=== PATIENT | male | born 1955 ===

== ENCOUNTER 2019-02-22 15:20 | Emergency (ER) | payer MEDICARE, OTHER ==
[~2019-02-22] VITALS: Ht 180.3 cm; Wt 68.0 kg
[2019-02-22 16:10] LABS: BASOPHILS PERCENT AUTO 1 % (0-2); EOSINOPHILS ABSOLUTE AUTO 0.22 K/mm3 (0.00-0.68); EOSINOPHILS PERCENT AUTO 2 % (0-6); Hematocrit 35.5 % (37.0-53.0); Hemoglobin 10.9 g/dL (13.5-17.5); IMMATURE GRAN ABSOLUTE AUTO 0.04 K/mm3 (0.00-0.10); IMMATURE GRAN PERCENT AUTO 0 % (0-1); LYMPHOCYTES ABSOLUTE AUTO 1.94 K/mm3 (0.84-5.20); LYMPHOCYTES PERCENT AUTO 16 % (21-46); MONOCYTES ABSOLUTE AUTO 1.15 K/mm3 (0.16-1.47); MONOCYTES PERCENT AUTO 10 % (4-13); Mean Corpuscular HGB 20.4 pg (26.0-34.0); Mean Corpuscular HGB Conc 30.7 g/dL (31.5-36.5); Mean Corpuscular Volume 66 fL (80-100); Mean Platelet Volume 9.4 fL (9.1-12.4); NEUTROPHILS ABSOLUTE AUTO 8.46 K/mm3 (1.96-9.15); NEUTROPHILS PERCENT AUTO 71 % (41-73); NRBC ABSOLUTE 0.02 K/mm3 (0.00-0.02); NRBC Auto 0.2 /100 WBC (0.0-0.2); Platelet Count 364 K/mm3 (150-400); RDW Coefficient Variation 16.2 % (11.7-14.2); RDW Standard Deviation 36.5 fL (35.1-46.3); Red Blood Cell Count 5.35 M/mm3 (4.30-5.90); White Blood Cell Count 11.91 K/mm3 (4.00-11.30)
[2019-02-22 16:29] LABS: Alanine Aminotransfer (ALT/SGP 25 U/L (12-78); Albumin, Blood 3.3 g/dL (3.4-5.0); Albumin/Globulin Ratio 0.8 (0.8-1.8); Alk Phos 98 U/L (50-136); Anion Gap 5 mmol/L (6-16); Aspartate Aminotrans (AST/SGOT 28 U/L (12-37); Bilirubin, Total 0.4 mg/dL (0.1-1.0); Blood Urea Nitrogen 28 mg/dL (8-24); Bun/Creatinine Ratio 24.3 (12.0-20.0); CO2, Blood 28 mmol/L (21-32); Chloride, Blood 105 mmol/L (98-108); Creatinine, Blood 1.15 mg/dL (0.60-1.20); Globulin, Blood 4.1 g/dL (2.2-4.0); Glomerular Filtration Rate >60 (60-); Glucose, Blood 57 mg/dL (70-99); Potassium, Blood 3.9 mmol/L (3.5-5.5); Sodium, Blood 138 mmol/L (136-145); Total Protein, Blood 7.4 g/dL (6.4-8.2)
[2019-02-22 17:13] LABS: Source, Urine Clean Catch
[2019-02-22 17:16] LABS: Bilirubin, Urine Neg (Neg); Blood, Urine 1+ (Neg); Glucose Qualitative, Urine Neg (Neg); Ketones, Urine Neg (Neg); Leukocyte Esterase, Urine Neg (Neg); Nitrite, Urine Neg (Neg); Protein, Urine 2+ (Neg); Specific Gravity, Urine 1.015 (1.003-1.022); Urobilinogen, Urine NORM (Normal)
[2019-02-22 17:22] LABS: Appearance, Urine Clear (Clear); Color, Urine Yellow (P-Yellow)
[2019-02-22 17:24] LABS: Bacteria Few /hpf; Squamous Epithelial Cells Few /hpf (Few)
== END 2019-02-22 19:05 | disposition home or self-care (01) ==
LOC: ER 15:20
PROVIDERS: Physician Assistant
DX: E86.0 Dehydration (principal); E16.2 Hypoglycemia, unspecified; D64.9 Anemia, unspecified; D72.829 Elevated white blood cell count, unspecified; F17.290 Nicotine dependence, other tobacco product, uncomplicated
CPT/HCPCS: 80053; 81001; 82947; 85025; 93005; 93010; 96360; 96361; 99285-25; J7120

== ENCOUNTER 2019-03-27 22:11 | Emergency (ER) | payer MEDICARE, OTHER ==
[~2019-03-27] VITALS: Ht 172.7 cm; Wt 69.4 kg
[2019-03-27 22:42] LABS: BASOPHILS ABSOLUTE AUTO 0.07 K/mm3 (0.00-0.23); BASOPHILS PERCENT AUTO 1 % (0-2); EOSINOPHILS ABSOLUTE AUTO 0.44 K/mm3 (0.00-0.68); EOSINOPHILS PERCENT AUTO 5 % (0-6); Hematocrit 32.6 % (37.0-53.0); Hemoglobin 10.1 g/dL (13.5-17.5); IMMATURE GRAN ABSOLUTE AUTO 0.03 K/mm3 (0.00-0.10); IMMATURE GRAN PERCENT AUTO 0 % (0-1); LYMPHOCYTES ABSOLUTE AUTO 2.63 K/mm3 (0.84-5.20); LYMPHOCYTES PERCENT AUTO 32 % (21-46); MONOCYTES ABSOLUTE AUTO 0.66 K/mm3 (0.16-1.47); MONOCYTES PERCENT AUTO 8 % (4-13); Mean Corpuscular HGB 20.9 pg (26.0-34.0); Mean Corpuscular Volume 68 fL (80-100); Mean Platelet Volume 9.6 fL (9.1-12.4); NEUTROPHILS PERCENT AUTO 53 % (41-73); NRBC ABSOLUTE 0.04 K/mm3 (0.00-0.02); NRBC Auto 0.5 /100 WBC (0.0-0.2); Platelet Count 301 K/mm3 (150-400); RDW Coefficient Variation 15.4 % (11.7-14.2); RDW Standard Deviation 36.3 fL (35.1-46.3); Red Blood Cell Count 4.83 M/mm3 (4.30-5.90); White Blood Cell Count 8.23 K/mm3 (4.00-11.30)
[2019-03-27 22:59] LABS: Alanine Aminotransfer (ALT/SGP 28 U/L (12-78); Albumin, Blood 3.4 g/dL (3.4-5.0); Albumin/Globulin Ratio 0.8 (0.8-1.8); Alk Phos 106 U/L (50-136); Anion Gap 3 mmol/L (6-16); Aspartate Aminotrans (AST/SGOT 27 U/L (12-37); Bilirubin, Total 0.3 mg/dL (0.1-1.0); Blood Urea Nitrogen 41 mg/dL (8-24); Bun/Creatinine Ratio 49.6 (12.0-20.0); CO2, Blood 30 mmol/L (21-32); Chloride, Blood 111 mmol/L (98-108); Creatinine, Blood 0.83 mg/dL (0.60-1.20); Globulin, Blood 4.3 g/dL (2.2-4.0); Glomerular Filtration Rate >60 (60-); Glucose, Blood 58 mg/dL (70-99); Potassium, Blood 3.9 mmol/L (3.5-5.5); Sodium, Blood 144 mmol/L (136-145); Total Protein, Blood 7.7 g/dL (6.4-8.2)
[2019-03-28] MEDS ORDERED: ONDA4ODT MM (01:13)
[2019-03-28] MEDS ORDERED: PANT20 PO (01:13)
== END 2019-03-28 01:00 | disposition home or self-care (01) ==
LOC: ER 22:11
PROVIDERS: Emergency Medicine
DX: R10.13 Epigastric pain (principal); R11.2 Nausea with vomiting, unspecified; F17.200 Nicotine dependence, unspecified, uncomplicated
CPT/HCPCS: 80053; 83690; 85025; 99284; A9270-GY

== ENCOUNTER 2019-03-31 18:09 | Emergency (ER) | payer MEDICARE, OTHER ==
[~2019-03-31] VITALS: Ht 172.7 cm; Wt 69.4 kg
[~2019-03-31 18:09] MED LIST: ONDA4ODT MM; PANT20 PO
[2019-03-31] MEDS ORDERED: ACETAMINOPHEN500 MG PO (20:19)
== END 2019-03-31 20:35 | disposition home or self-care (01) ==
LOC: ER 18:09
DX: T14.8XXA Other injury of unspecified body region, initial encounter (principal); R51 Headache; M25.561 Pain in right knee; M25.562 Pain in left knee; M79.641 Pain in right hand; M79.642 Pain in left hand; W01.198A Fall on same level from slipping, tripping and stumbling with subsequent striking against other object, initial encounter; F17.200 Nicotine dependence, unspecified, uncomplicated
CPT/HCPCS: 99283

== ENCOUNTER 2019-04-01 03:33 | Emergency (ER) | payer MEDICARE, OTHER ==
[~2019-04-01] VITALS: Ht 172.7 cm; Wt 69.4 kg
[~2019-04-01 03:33] MED LIST changes: +ACETAMINOPHEN500 MG PO
== END 2019-04-01 05:18 | disposition home or self-care (01) ==
LOC: ER 03:33
DX: S69.92XA Unspecified injury of left wrist, hand and finger(s), initial encounter (principal); S69.91XA Unspecified injury of right wrist, hand and finger(s), initial encounter; W18.30XA Fall on same level, unspecified, initial encounter
CPT/HCPCS: 73100; 99283-25

== ENCOUNTER 2019-04-07 18:36 | Emergency (ER) | payer MEDICARE, OTHER ==
[~2019-04-07] VITALS: Ht 172.7 cm; Wt 69.4 kg
[2019-04-07 19:00] LABS: BASOPHILS ABSOLUTE AUTO 0.09 K/mm3 (0.00-0.23); BASOPHILS PERCENT AUTO 1 % (0-2); EOSINOPHILS ABSOLUTE AUTO 0.65 K/mm3 (0.00-0.68); EOSINOPHILS PERCENT AUTO 8 % (0-6); Hematocrit 30.3 % (37.0-53.0); Hemoglobin 9.4 g/dL (13.5-17.5); IMMATURE GRAN ABSOLUTE AUTO 0.02 K/mm3 (0.00-0.10); IMMATURE GRAN PERCENT AUTO 0 % (0-1); LYMPHOCYTES ABSOLUTE AUTO 3.03 K/mm3 (0.84-5.20); LYMPHOCYTES PERCENT AUTO 36 % (21-46); MONOCYTES ABSOLUTE AUTO 0.51 K/mm3 (0.16-1.47); MONOCYTES PERCENT AUTO 6 % (4-13); Mean Corpuscular HGB 21.1 pg (26.0-34.0); Mean Corpuscular Volume 68 fL (80-100); Mean Platelet Volume 9.3 fL (9.1-12.4); NEUTROPHILS ABSOLUTE AUTO 4.21 K/mm3 (1.96-9.15); NEUTROPHILS PERCENT AUTO 50 % (41-73); Platelet Count 338 K/mm3 (150-400); RDW Coefficient Variation 16.5 % (11.7-14.2); RDW Standard Deviation 38.5 fL (35.1-46.3); Red Blood Cell Count 4.45 M/mm3 (4.30-5.90); White Blood Cell Count 8.51 K/mm3 (4.00-11.30)
[2019-04-07 19:41] LABS: Anion Gap 8 mmol/L (6-16); Blood Urea Nitrogen 17 mg/dL (8-24); CO2, Blood 27 mmol/L (21-32); Calcium, Blood 8.9 mg/dL (8.5-10.1); Chloride, Blood 108 mmol/L (98-108); Glomerular Filtration Rate >60 (60-); Glucose, Blood 99 mg/dL (70-99); Potassium, Blood 3.7 mmol/L (3.5-5.5); Sodium, Blood 143 mmol/L (136-145)
== END 2019-04-07 21:18 | disposition home or self-care (01) ==
LOC: ER 18:36
PROVIDERS: Emergency Medicine
DX: R53.83 Other fatigue (principal); Z85.841 Personal history of malignant neoplasm of brain; F17.200 Nicotine dependence, unspecified, uncomplicated; Z59.0 Homelessness
CPT/HCPCS: 80048; 84443; 85025; 93005; 93010; 99284-25

== ENCOUNTER 2019-04-11 08:12 | Observation (INO) | payer MEDICARE, OTHER ==
[~2019-04-11] VITALS: Ht 172.7 cm; Wt 72.6 kg
[2019-04-11 09:21] LABS: BASOPHILS ABSOLUTE AUTO 0.06 K/mm3 (0.00-0.23); BASOPHILS PERCENT AUTO 0 % (0-2); EOSINOPHILS ABSOLUTE AUTO 0.31 K/mm3 (0.00-0.68); EOSINOPHILS PERCENT AUTO 2 % (0-6); Hematocrit 37.8 % (37.0-53.0); Hemoglobin 11.3 g/dL (13.5-17.5); IMMATURE GRAN ABSOLUTE AUTO 0.05 K/mm3 (0.00-0.10); IMMATURE GRAN PERCENT AUTO 0 % (0-1); LYMPHOCYTES ABSOLUTE AUTO 4.04 K/mm3 (0.84-5.20); LYMPHOCYTES PERCENT AUTO 29 % (21-46); MONOCYTES ABSOLUTE AUTO 0.69 K/mm3 (0.16-1.47); MONOCYTES PERCENT AUTO 5 % (4-13); Mean Corpuscular HGB 20.5 pg (26.0-34.0); Mean Corpuscular HGB Conc 29.9 g/dL (31.5-36.5); Mean Corpuscular Volume 69 fL (80-100); Mean Platelet Volume 9.2 fL (9.1-12.4); NEUTROPHILS ABSOLUTE AUTO 8.66 K/mm3 (1.96-9.15); NEUTROPHILS PERCENT AUTO 63 % (41-73); Platelet Count 442 K/mm3 (150-400); RDW Coefficient Variation 17.7 % (11.7-14.2); RDW Standard Deviation 38.8 fL (35.1-46.3); Red Blood Cell Count 5.52 M/mm3 (4.30-5.90); White Blood Cell Count 13.81 K/mm3 (4.00-11.30)
[2019-04-11 09:36] LABS: Alanine Aminotransfer (ALT/SGP 34 U/L (12-78); Albumin, Blood 4.1 g/dL (3.4-5.0); Albumin/Globulin Ratio 0.9 (0.8-1.8); Alk Phos 114 U/L (50-136); Anion Gap 14 mmol/L (6-16); Aspartate Aminotrans (AST/SGOT 49 U/L (12-37); Bilirubin, Total 0.4 mg/dL (0.1-1.0); Blood Urea Nitrogen 33 mg/dL (8-24); Bun/Creatinine Ratio 28.9 (12.0-20.0); CO2, Blood 23 mmol/L (21-32); Calcium, Blood 9.5 mg/dL (8.5-10.1); Chloride, Blood 106 mmol/L (98-108); Creatinine, Blood 1.14 mg/dL (0.60-1.20); Globulin, Blood 4.7 g/dL (2.2-4.0); Glomerular Filtration Rate >60 (60-); Glucose, Blood 81 mg/dL (70-99); Sodium, Blood 143 mmol/L (136-145); Total Protein, Blood 8.8 g/dL (6.4-8.2)
[2019-04-11 13:13] LABS: Phosphorus, Blood 3.1 mg/dL (2.5-4.9)
[2019-04-11 15:59] LABS: Source, Urine Clean Catch
[2019-04-11 16:02] LABS: Bilirubin, Urine Neg (Neg); Blood, Urine Neg (Neg); Glucose Qualitative, Urine Neg (Neg); Ketones, Urine 3+ (Neg); Leukocyte Esterase, Urine Neg (Neg); Nitrite, Urine Neg (Neg); Protein, Urine 1+ (Neg); Specific Gravity, Urine 1.015 (1.003-1.022); Urobilinogen, Urine NORM (Normal)
[2019-04-11 16:04] LABS: Appearance, Urine Clear (Clear); Color, Urine Yellow (P-Yellow)
[2019-04-11 16:35] LABS: U Amphetamine Screen DETECTED; U Barbituate Screen Not Detected; U Benzodiazapine Screen DETECTED; U Buprenorphine Screen Not Detected; U Cannabinoids Screen DETECTED; U Cocaine Screen Not Detected; U Methadone Screen Not Detected; U Methamphetamine Screen DETECTED; U Opiates Screen Not Detected; U Oxycodone Screen Not Detected; U Phencyclidine Screen Not Detected; U Propoxyphene Screen Not Detected
--- NOTE | 2019-04-11 17:43 | NUR ---
SHIFT SUMMARY. 1354 PT ADMITTED TO MEDICAL FLOOR VIA ASAEL DUNN TRANSFERED TO BED WITH 4 STAFF, PT TOLERATED WELL. BED BATH GIVEN AFTER TRANSFER PT WAS COVERED IN DIRT. PT EASILY AWAKENS WITH VERBAL STIMULATION ALTHOUGH VERY LETHARGIC, ORIENTATED TO SELF AND PLACE, POOR HISTORIAN. PT WITH INTERMITTENT TREMORS WHILE AWAKE. PT IS PLEASANT, COOPERATIVE, AND APPRECIATIVE. PT REPORTS HE IS HOMELESS. LUNGS CLEAR, TELE PLACED AND NSR AT 86 BPM. STAGE II PRESSURE ULCER OBSERVED TO R HIP, WOUND CARE AND DOCUMENTATION COMPLETED. IV FLUIDS STARTED. URINE SENT TO LAB. CIWA 5, STABLE WITHDRAWL, PT IS UNAWARE OF TIME OF LAST DRINK.
--- NOTE | 2019-04-11 18:06 | NUR ---
CBG 67, PT MORE ALERT THIS EVENING DR. LOPEZ NOTIFIED AND RECIEVED ORDERS FOR REGULAR DIET.
--- NOTE | 2019-04-11 23:00 | NUR ---
PT SOMNOLENT DURING ASSESSMENT AND IS COOPERATIVE. PT AWARE HE IS AT THE HOSPITAL. ABLE TO STATE DAY OF THE WEEK AND MONTH CORRECTLY. PT HAS MILD TO MODERATE TREMORS AT REST AT THE FEET. DENIES PAIN, NAUSEA AND DIZZINIESS. ORAL CARE OFFERED BUT PT DID NOT PARTICIPATE. WILL CONTINUE TO MONITOR.
--- NOTE | 2019-04-12 00:23 | NUR ---
PT'S BLOOD SUGAR 64 AROUND MIDNIGHT. ORANGE WAS OFFERED MIXED WITH A COUPLE PACKS OF SUGARS. AMANDA CRACKER WITH HONEY PACK WAS ALSO OFFERED. PT DRANK 240 ML OF OJ. MORE ORANGE JUICE LEFT AT BEDSIDE. WILL CONTINUE TO MONITOR.
--- NOTE | 2019-04-12 01:53 | NUR ---
BLOOD SUGAR RECHECKED AND IMPROVED TO 132. WILL NOTIFY CHARGE NURSE.
--- NOTE | 2019-04-12 02:34 | NUR ---
PT GOT UP TO GO TO THE BATHROOM. MOVEMENTS WERE IMPULSIVE. PT WAS UP OUT OF THE BED BEFORE STAFF CAME IN REGARDLESS OF BED ALARM. PT PULLED OFF TELE AND ATTEMPTED TO PULL OUT IV. NURSE UNHOOKED PT FROM IV LINE BEFORE HE COULD PULL IT OUT. PT RE-INSTRUCTED TO USE CALL SMILEY. PT ALSO INCOMPREHENSIBLE AT TIMES.
--- NOTE | 2019-04-12 02:52 | NUR ---
TEMP CLIMBED UP TO 100.5. ROOM ADJUSTED TO A LOWER TEMPERATURE. PT HAD 2 BLANKETS AND A TOP SHEET ON PREVIOUSLY. NURSE LEFT ONLY TOP SHEET ON IN ATTEMPT TO LOWER TEMPERATURE. PT DENIED CHILLS, AND PAIN. PT STATES HE FEELS "JUST RIGHT" AND "COMFORTABLE". WILL CONINTUE TO MONITOR.
[2019-04-12 04:55] LABS: BASOPHILS ABSOLUTE AUTO 0.07 K/mm3 (0.00-0.23); BASOPHILS PERCENT AUTO 1 % (0-2); EOSINOPHILS ABSOLUTE AUTO 0.38 K/mm3 (0.00-0.68); EOSINOPHILS PERCENT AUTO 4 % (0-6); Hematocrit 30.7 % (37.0-53.0); Hemoglobin 9.6 g/dL (13.5-17.5); IMMATURE GRAN ABSOLUTE AUTO 0.03 K/mm3 (0.00-0.10); IMMATURE GRAN PERCENT AUTO 0 % (0-1); LYMPHOCYTES ABSOLUTE AUTO 2.71 K/mm3 (0.84-5.20); LYMPHOCYTES PERCENT AUTO 26 % (21-46); MONOCYTES ABSOLUTE AUTO 0.78 K/mm3 (0.16-1.47); MONOCYTES PERCENT AUTO 8 % (4-13); Mean Corpuscular HGB 20.9 pg (26.0-34.0); Mean Corpuscular HGB Conc 31.3 g/dL (31.5-36.5); Mean Corpuscular Volume 67 fL (80-100); Mean Platelet Volume 9.2 fL (9.1-12.4); NEUTROPHILS ABSOLUTE AUTO 6.28 K/mm3 (1.96-9.15); NEUTROPHILS PERCENT AUTO 61 % (41-73); Platelet Count 368 K/mm3 (150-400); RDW Coefficient Variation 16.6 % (11.7-14.2); RDW Standard Deviation 37.2 fL (35.1-46.3); White Blood Cell Count 10.25 K/mm3 (4.00-11.30)
--- NOTE | 2019-04-12 05:12 | NUR ---
TEMP RE-ASSESSED: 100.3. HOSPITALIST NOTIFIED. TYLENOL 325MG X2 PO ORDERED AND GIVEN PER DR. BOURNE. WILL CONTINUE TO MONITOR.
[2019-04-12 05:14] LABS: Anion Gap 6 mmol/L (6-16); Blood Urea Nitrogen 24 mg/dL (8-24); Bun/Creatinine Ratio 28.6 (12.0-20.0); CO2, Blood 25 mmol/L (21-32); Calcium, Blood 8.6 mg/dL (8.5-10.1); Chloride, Blood 111 mmol/L (98-108); Creatinine, Blood 0.84 mg/dL (0.60-1.20); Glomerular Filtration Rate >60 (60-); Glucose, Blood 68 mg/dL (70-99); Magnesium, Blood 1.9 mg/dL (1.6-2.4); Phosphorus, Blood 2.5 mg/dL (2.5-4.9); Potassium, Blood 3.8 mmol/L (3.5-5.5); Sodium, Blood 142 mmol/L (136-145)
--- NOTE | 2019-04-12 05:15 | NUR ---
THERAPEUTIC SALES SPECIALIST SUMMARY PT WAS ABLE TO SLEEP ON AND OFF THROUGHOUT THE NIGHT NURSING STAFF HAD TO CHECK IN MULTIPLE TIMES. PT SOMOLENT ALL NIGHT. REGARDLESS, PT STATED HE HASN'T GOTTEN THIS MUCH SLEEP IN A LONG TIME. PT FIGIDY AND OCCASIONAL TREMORS AT REST IN LEGS AND FEET. PT PULLED AND DISCONNECTED TELE WHILE GETTING UP AND GOING TO THE BATHROOM. DOES NOT USE CALL LIGHT EVEN WHEN REMINDED TO DO SO. PT SOMETIMES USES BEDSIDE URINAL. PT ALSO ATTEMPTED TO PULL IV OUT BEFORE GOING TO THE BATHROOM. PT QUICK AT STANDING UP AND TRANSFERRING TO THE BATHROOM EVEN WITH BED ALARM ON. NURSE WAS QUICK ENOUGH TO DISCONNECT IV TUBING BEFORE PT COULD PULL IT OUT. PT'S SPEECH IS GARBLED AND INCOMPREHENSIBLE MOST OF THE TIME. LR RUNNING CONTINOUSLY AT 125ML/HOUR. VIEW PREVIOUS NOTES ON BLOOD SUGARS AND VITALS. CIWA SCORE OF 4. WILL CONTINUE TO MONITOR.
--- NOTE | 2019-04-12 06:11 | NUR ---
CBG 68 AT 04:31 FOR MORNING LABS. OJ 120 mL GIVEN WITH TWO SUGAR PACKS AND ONE HONEY AND CBG 140 AT 06:10 FOR Q6 CHECK PER ORDER.
[2019-04-12] MEDS ORDERED: ACET325 PO (11:13)
[2019-04-12] MEDS ORDERED: ONDA4ODT MM (11:14)
[2019-04-12] MEDS ORDERED: GABA100 PO (11:15)
--- NOTE | 2019-04-12 14:25 | NUR ---
1420 PT DISCHARGED VIA TAXI WITH VOUCHER. PT ESCORTED TO ENTRANCE VIA W/C BY MARINO BARR. IV RMEOVED. D/C PAPERWORK REVIEWED WITH PT AND COPY PROVIDED. PT'S PCP IN [place], NEW PT PACKET FOR [facility] GIVEN TO PT, PT ACKNOWLEDGED UNDERSTANDING. PT GIVEN MAP WITH DIRECTIONS FROM [facility] ON [address] TO [facility] ON [address] TO [place]. NEW RX FAXED TO [facility] ON [address].
== END 2019-04-12 14:15 | disposition home or self-care (01) ==
LOC: ER 08:12 → MEDS 08:13 → ENPENDDIS 04-12 11:09 → MEDS 04-12 14:15
PROVIDERS: Emergency Medicine; ADMIT Family Medicine
DX: G40.909 Epilepsy, unspecified, not intractable, without status epilepticus (principal); D72.829 Elevated white blood cell count, unspecified; F10.10 Alcohol abuse, uncomplicated; F17.210 Nicotine dependence, cigarettes, uncomplicated; Z87.820 Personal history of traumatic brain injury; Z79.899 Other long term (current) drug therapy; Y90.0 Blood alcohol level of less than 20 mg/100 ml
CPT/HCPCS: 36415; 70450; 71045; 80048; 80053; 82947; 83605; 83735; 84100; 84145; 84484; 85025; 96361; 96372; 96374; 96375; 99285-25; A9270; G0378; G0480; J1650; J2060; J7030

== ENCOUNTER 2019-04-19 21:59 | Emergency (ER) | payer MEDICARE, OTHER ==
[~2019-04-19] VITALS: Ht 172.7 cm; Wt 69.4 kg
[~2019-04-19 21:59] MED LIST changes: +ACET325 PO; +GABA100 PO
[2019-04-19 22:39] LABS: BASOPHILS ABSOLUTE AUTO 0.12 K/mm3 (0.00-0.23); BASOPHILS PERCENT AUTO 1 % (0-2); EOSINOPHILS PERCENT AUTO 4 % (0-6); Hematocrit 34.1 % (37.0-53.0); Hemoglobin 10.6 g/dL (13.5-17.5); IMMATURE GRAN ABSOLUTE AUTO 0.03 K/mm3 (0.00-0.10); IMMATURE GRAN PERCENT AUTO 0 % (0-1); LYMPHOCYTES ABSOLUTE AUTO 2.34 K/mm3 (0.84-5.20); LYMPHOCYTES PERCENT AUTO 25 % (21-46); MONOCYTES ABSOLUTE AUTO 0.89 K/mm3 (0.16-1.47); MONOCYTES PERCENT AUTO 9 % (4-13); Mean Corpuscular HGB 20.8 pg (26.0-34.0); Mean Corpuscular HGB Conc 31.1 g/dL (31.5-36.5); Mean Corpuscular Volume 67 fL (80-100); NEUTROPHILS ABSOLUTE AUTO 5.76 K/mm3 (1.96-9.15); NEUTROPHILS PERCENT AUTO 60 % (41-73); Platelet Count 476 K/mm3 (150-400); RDW Coefficient Variation 16.1 % (11.7-14.2); RDW Standard Deviation 37.5 fL (35.1-46.3); White Blood Cell Count 9.54 K/mm3 (4.00-11.30)
[2019-04-19 22:57] LABS: Alanine Aminotransfer (ALT/SGP 38 U/L (12-78); Albumin, Blood 3.7 g/dL (3.4-5.0); Albumin/Globulin Ratio 0.9 (0.8-1.8); Alk Phos 112 U/L (50-136); Anion Gap 8 mmol/L (6-16); Aspartate Aminotrans (AST/SGOT 44 U/L (12-37); Bilirubin, Total 0.4 mg/dL (0.1-1.0); Blood Urea Nitrogen 35 mg/dL (8-24); Bun/Creatinine Ratio 34.3 (12.0-20.0); CO2, Blood 29 mmol/L (21-32); Calcium, Blood 9.6 mg/dL (8.5-10.1); Chloride, Blood 110 mmol/L (98-108); Creatinine, Blood 1.02 mg/dL (0.60-1.20); Globulin, Blood 4.1 g/dL (2.2-4.0); Glomerular Filtration Rate >60 (60-); Glucose, Blood 84 mg/dL (70-99); Potassium, Blood 4.5 mmol/L (3.5-5.5); Sodium, Blood 147 mmol/L (136-145); Total Protein, Blood 7.8 g/dL (6.4-8.2)
[2019-04-19] MEDS ORDERED: Pepcid20 MG PO (23:40)
[2019-04-20] MEDS ORDERED: TUMS500 MG PO (12:15)
[2019-04-20] MEDS ORDERED: DIVA500EC (12:17)
== END 2019-04-20 00:15 | disposition home or self-care (01) ==
LOC: ER 21:59
PROVIDERS: Emergency Medicine
DX: K29.70 Gastritis, unspecified, without bleeding (principal); Z79.899 Other long term (current) drug therapy; G40.909 Epilepsy, unspecified, not intractable, without status epilepticus; F17.200 Nicotine dependence, unspecified, uncomplicated
CPT/HCPCS: 36415; 74022; 80053; 83690; 85025; 93005; 93010; 99284-25

== ENCOUNTER 2019-04-20 06:31 | Inpatient (IN) | payer MEDICARE, OTHER ==
[~2019-04-20] VITALS: Ht 172.7 cm; Wt 67.5 kg
[~2019-04-20 06:31] MED LIST changes: +Pepcid20 MG PO
[2019-04-20 11:32] LABS: International Normalized Ratio 0.95; Prothrombin Time Results 10.1 Sec (9.7-11.5)
[2019-04-20] MEDS ORDERED: TUMS500 MG PO (12:15)
[2019-04-20] MEDS ORDERED: DIVA500EC (12:17)
--- NOTE | 2019-04-20 13:55 | NUR ---
PT REPORTS HE HAS NOT BEEN TAKING HIS DEPAKOTE, PEPCID OR GABAPENTIN. PT REPORTS HE USES MARIJUANA TO MANAGE HIS SEIZURES INSTEAD OF TAKING DEPAKOTE. PT DOES NOT REMEMBER WHEN HIS LAST SEIZURE WAS. WILL CONTINUE TO MONITOR.
--- NOTE | 2019-04-20 18:00 | NUR ---
SHIFT SUMMARY PT WAS ADMITTED TODAY THROUGH THE ER. HE HAS REMAINED ALERT AND ORIENTED SINCE ARRIVING TO THE UNIT AND USES THE CALL LIGHT APPROPRATELY. PT WILL BE NPO AFTER MN FOR POSSIBLE SURGERY TOMORROW. SURGERY WAS CANCELLED FOR TODAY REGARDING OPEN WOUND ON RIGHT HIP. PT REPORTS THE WOUND ON HIS RIGHT HIP HAS BEEN HEALING FOR A YEAR OR MORE AND STARTED AN ABSCESS. PHOTOS OF R HIP WOUNDS AND ABRASIONS PLACED IN THE CHART. VSS. WILL MONITOR UNTIL UNTIL REPORT TO ONCOMING RN.
--- NOTE | 2019-04-20 18:43 | NUR ---
PT REQUESTED ASSISTANCE REPOSITIONING. YING GLORIA REPORTS SHE ATTEMPTED TO ASSIST WITH REPOSITIONING; PT BEGAN YELLING AND CURSING AT HER. PT WAS INSTRUCTED TO STOP YELLING. WILL CONTINUE TO MONITOR.
--- NOTE | 2019-04-21 01:31 | NUR ---
Patient A&Ox4. VSS. Complaints of pain to L Hip; medicated per orders. IVF infusing. Wound to R hip, wet to dry dressing placed. NPO since midnight. CMS to LLE intact.
[2019-04-21 03:03] LABS: U Amphetamine Screen Not Detected; U Barbituate Screen Not Detected; U Benzodiazapine Screen Not Detected; U Buprenorphine Screen Not Detected; U Cannabinoids Screen DETECTED; U Cocaine Screen Not Detected; U Methadone Screen Not Detected; U Methamphetamine Screen Not Detected; U Opiates Screen Not Detected; U Oxycodone Screen Not Detected; U Phencyclidine Screen Not Detected; U Propoxyphene Screen Not Detected
[2019-04-21 04:33] LABS: BASOPHILS PERCENT AUTO 1 % (0-2); EOSINOPHILS ABSOLUTE AUTO 0.21 K/mm3 (0.00-0.68); EOSINOPHILS PERCENT AUTO 2 % (0-6); Hemoglobin 9.6 g/dL (13.5-17.5); IMMATURE GRAN ABSOLUTE AUTO 0.01 K/mm3 (0.00-0.10); IMMATURE GRAN PERCENT AUTO 0 % (0-1); LYMPHOCYTES ABSOLUTE AUTO 2.37 K/mm3 (0.84-5.20); LYMPHOCYTES PERCENT AUTO 27 % (21-46); MONOCYTES ABSOLUTE AUTO 0.98 K/mm3 (0.16-1.47); MONOCYTES PERCENT AUTO 11 % (4-13); Mean Corpuscular HGB 20.6 pg (26.0-34.0); Mean Corpuscular Volume 66 fL (80-100); Mean Platelet Volume 8.7 fL (9.1-12.4); NEUTROPHILS ABSOLUTE AUTO 5.27 K/mm3 (1.96-9.15); NEUTROPHILS PERCENT AUTO 59 % (41-73); NRBC ABSOLUTE 0.02 K/mm3 (0.00-0.02); NRBC Auto 0.2 /100 WBC (0.0-0.2); Platelet Count 377 K/mm3 (150-400); RDW Coefficient Variation 15.9 % (11.7-14.2); RDW Standard Deviation 36.3 fL (35.1-46.3); Red Blood Cell Count 4.67 M/mm3 (4.30-5.90); White Blood Cell Count 8.94 K/mm3 (4.00-11.30)
[2019-04-21 04:50] LABS: Anion Gap 7 mmol/L (6-16); Blood Urea Nitrogen 19 mg/dL (8-24); Bun/Creatinine Ratio 24.6 (12.0-20.0); CO2, Blood 26 mmol/L (21-32); Calcium, Blood 8.8 mg/dL (8.5-10.1); Chloride, Blood 107 mmol/L (98-108); Creatinine, Blood 0.77 mg/dL (0.60-1.20); Glomerular Filtration Rate >60 (60-); Glucose, Blood 85 mg/dL (70-99); Sodium, Blood 140 mmol/L (136-145)
--- NOTE | 2019-04-21 13:45 | NUR ---
PT TO SURGERY AT THIS TIME
--- NOTE | 2019-04-21 14:13 | NUR ---
INTO DAY SURGERY PER BED. History, Chart, Medications and Allergies reviewed before start of procedure.Lungs clear T/O to Auscultation. Patient confirms NPO status and agrees with scheduled surgery.
--- NOTE | 2019-04-21 16:23 | NUR ---
04/21/19 1623 Acacia Dooley PT ON SCHEDULED ABX. GIVEN PRIOR TO ARRIVAL TO OR
--- NOTE | 2019-04-21 18:18 | NUR ---
SHIFT SUMMARY PT HAD SURGERY TODAY ON L HIP AND CAME BACK TO SURG FLOOR ABOUT 1800. PT HAS BEEN SLEEPING BUT IS A/O UPON AROUSAL. PT ON RA WITH 96% O2. DRESSING TO R HIP CDI. REPORTS NO PAIN AT THIS TIME. POLAR PACK IN PLACE, SCD'S IN PLACE.
[2019-04-21 18:59] LABS: Vancomycin, Trough 9.6 ug/mL (5.0-10.0)
[2019-04-22 05:32] LABS: BASOPHILS ABSOLUTE AUTO 0.03 K/mm3 (0.00-0.23); BASOPHILS PERCENT AUTO 0 % (0-2); EOSINOPHILS PERCENT AUTO 0 % (0-6); Hematocrit 29.6 % (37.0-53.0); Hemoglobin 9.5 g/dL (13.5-17.5); IMMATURE GRAN ABSOLUTE AUTO 0.03 K/mm3 (0.00-0.10); IMMATURE GRAN PERCENT AUTO 0 % (0-1); LYMPHOCYTES ABSOLUTE AUTO 1.81 K/mm3 (0.84-5.20); LYMPHOCYTES PERCENT AUTO 19 % (21-46); MONOCYTES ABSOLUTE AUTO 1.01 K/mm3 (0.16-1.47); MONOCYTES PERCENT AUTO 11 % (4-13); Mean Corpuscular HGB 21.2 pg (26.0-34.0); Mean Corpuscular HGB Conc 32.1 g/dL (31.5-36.5); Mean Corpuscular Volume 66 fL (80-100); NEUTROPHILS ABSOLUTE AUTO 6.73 K/mm3 (1.96-9.15); NEUTROPHILS PERCENT AUTO 70 % (41-73); NRBC ABSOLUTE 0.02 K/mm3 (0.00-0.02); NRBC Auto 0.2 /100 WBC (0.0-0.2); Platelet Count 349 K/mm3 (150-400); RDW Coefficient Variation 15.9 % (11.7-14.2); RDW Standard Deviation 36.3 fL (35.1-46.3); Red Blood Cell Count 4.49 M/mm3 (4.30-5.90); White Blood Cell Count 9.61 K/mm3 (4.00-11.30)
[2019-04-22 05:48] LABS: Anion Gap 5 mmol/L (6-16); Blood Urea Nitrogen 16 mg/dL (8-24); Bun/Creatinine Ratio 21.1 (12.0-20.0); CO2, Blood 27 mmol/L (21-32); Calcium, Blood 8.5 mg/dL (8.5-10.1); Chloride, Blood 109 mmol/L (98-108); Creatinine, Blood 0.76 mg/dL (0.60-1.20); Glomerular Filtration Rate >60 (60-); Glucose, Blood 99 mg/dL (70-99); Magnesium, Blood 1.8 mg/dL (1.6-2.4); Potassium, Blood 4.1 mmol/L (3.5-5.5); Sodium, Blood 141 mmol/L (136-145)
--- NOTE | 2019-04-22 06:39 | NUR ---
SHIFT SUMMARY: JENS IS POD1 FOR A LEFT FEMUR NAILING AND I&D OF HIS CHRONIC RIGHT HIP WOUND. HE IS A&OX4, TOLERATING PO INTAKE VERY WELL. HE DENIES PAIN AT THIS TIME. DRESSINGS C/D&I. IV PATENT. ORA. HE IS USING THE URINAL WITHOUT DIFFICULTY. VSS. HE IS LYING IN BED WITH HIS CALL LIGHT IN REACH.
--- NOTE | 2019-04-22 08:10 | NUR ---
DR. FARLEY IN TO SEE PT DR. FARLEY IN TO SEE PT AT THIS TIME. DRESSING TO LEFT HIP CHANGE. NO DRAINAGE OR ABNORMALITIES NOTED. PT TOLERATED PROCEDURE WELL. WILL CONT. TO MONITOR.
--- NOTE | 2019-04-22 18:44 | NUR ---
SHIFT SUMMARY POD 1 S/P LEFT HIP NAILING. PT A&OX4 WITH VSS T/O SHIFT. DRESSING CHANGED TO AQUACEL ON LEFT HIP TODAY BY DOCTOR. RIGHT HIP WET-DRY DRESSING CHANGE TODAY. BOTH DRESSING C/D/I WITH NO DRAINAGE NOTED. POLAR LAVELLE APPLIED TO LEFT HIP TOLERATED. PAIN MANAGED WITH PO MEDICATION. TOLERATING REGULAR DIET. VOIDING AND REPORTS PASSING FLATUS. REFUSED TO WORK THERAPY OR GET OUT BED TODAY DESPITE EDUCATION AND ENCOURAGEMENT. OTHERWISE PLEASANT AND COOPERATIVE T/O SHIFT. CURRENTLY WATCHING TV IN ROOM IN BED WITH CALL LIGHT WITHIN REACH. WILL CONT TO MONITOR AND GIVE REPORT TO ONCOMING RN.
--- NOTE | 2019-04-23 07:12 | NUR ---
Patient was able to sleep, without pain for the majority of the night. He followed instructions to turn every two hours to help with wound healing and lung hygiene. uses call light appropriately.
[2019-04-23 07:50] LABS: Vancomycin, Trough 16.9 ug/mL (5.0-10.0)
--- NOTE | 2019-04-23 10:12 | NUR ---
DR HAMMER HERE EARLIER TO SEE PT.
--- NOTE | 2019-04-23 10:39 | NUR ---
R HIP WOUND CLEANSED AND NEW WET/DRY DRESSING PLACED PER ORDER.
--- NOTE | 2019-04-23 13:44 | NUR ---
THERAPY HERE TO WORK WITH PT.
--- NOTE | 2019-04-23 19:28 | NUR ---
SHIFT SUMMARY PT BEEN ASSISTED WITH ADL'S PRN. PT WORKED WITH THERAPY TODAY. PT BEEN REPOSITIONED MULT TIMES. PT USING CALL LIGHT APPR.. DRESSING TO R HIP WAS CHANGED TODAY ORDERED.
--- NOTE | 2019-04-24 05:31 | NUR ---
Patient had no complaints of pain of discomfort, moves to position of comfort. rt and lt hip dressings are dry and intact. eating and drinking. no other issues.
--- NOTE | 2019-04-24 17:46 | NUR ---
IV ACCESS PT'S IV CAME OUT EARLIER TODAY. ACCESS ATTEMPTED W/O SUCCESS. PT REFUSED FURTHER ATTEMPTS AT IV ACCESS.
--- NOTE | 2019-04-24 18:31 | NUR ---
SHIFT SUMMARY PT WAS IN BED MOST OF DAY BUT DID WORK WITH THERAPY AND GOT UP TO CHAIR FOR LUNCH. PT HAS BEEN ASSISTED WITH REPOSITIONING MULT TIMES THIS SHIFT. LINENS CHANGED THIS SHIFT. PT HAS REPORTED TOLERABLE PAIN CONTROL; MED PER ORDERS PRN. A/O, TOLERATING PO INTAKE, VOIDING IN URINAL. DRESSING TO R HIP CHANGED. ASSISTED WITH ADL'S PRN. IV CAME OUT THIS SHIFT, PT REFUSED TO HAVE ANOTHER IV STARTED.
--- NOTE | 2019-04-25 04:35 | NUR ---
SHIFT SUMMARY POD 4 L HIP. PT AA0X4. PATIENT HAS BEEN MEDICATED FOR PAIN X2 DURING SHIFT. CONTINENT OF BLADDER. PATIENT CALLING APPROPRIATLY. PATIENT HAS BEEN ASLEEP DURING MOST OF THE SHIFT. HAS HAD BOUT OF YELLING AT THE TV AND WORKING HIMSELF UP. PLEASANT WITH STAFF.
--- NOTE | 2019-04-25 05:29 | NUR ---
PT BP ELEVATED DURING MORNING BP. PATIENT WAS YELLING AT TV DURING THAT TIME. RETOOK PT'S BP LATER AFTER HE HAD CALMED DOWN AND BP WAS WNL.
--- NOTE | 2019-04-25 11:42 | NUR ---
PT REFUSING IV RESTART, WILL MAKE MD AWARE. ENCOURAGING UP TO CHAIR FOR MEALS, PT REPORTS DOES NOT WANT TO GET UP FOR LUNCH, BUT WOULD LIKE TO LATER. WILL CTM AND ENCOURAGE.
--- NOTE | 2019-04-25 14:01 | NUR ---
SPOKE WITH DR. HAMMER CONCERNING PT REFUSING IV RESTART. SEE NEW ORDERS
--- NOTE | 2019-04-25 16:31 | NUR ---
AT 1500 PT REFUSED UP TO CHAIR PER DONOR SPECIALISTSarahy ERNANDEZ, PT REPORTS THAT HE WANTS TO SLEEP INSTEAD. PT DID AGREE TO GET UP FOR DINNER.
--- NOTE | 2019-04-25 19:31 | NUR ---
SUMMMARY: SEE PREVIOUS NOTES. PT A/O,VSS, NO ACUTE CHANGE. PT HARD TO MOTIVATE TODAY AND SLEPT FOR A GOOD PORTION. PT UP TO CHAIR FOR DINNER. MEDICATED PER EMAR FOR PAIN, OTHERWISE PT SLEPT OR DENIED PAIN. MEPILEX DRESSINGS CHANGED. SURGICAL SITE WNL. ICED AND ELEVATED PER PT COMFORT. NO SAFETY CONCERNS, REPORT GIVEN TO MARINO PARRA.
--- NOTE | 2019-04-26 03:53 | NUR ---
SHIFT SUMMARY POD 5. PT AA0X4, VSS. PT NOT FOLLOWING HIP PRECAUATIONS. ATTEMPTING TO TRANSFER SELF. EDUCATED PATIENT ON FOLLOWING PRECAUTIONS AND RISK IF NOT FOLLOWED. PT HAS BEEN RESTING IN BED DURING SHIFT. MEDICATED PER EMAR. CONT OF VOID. PLEASANT THROUGHOUT SHIFT. REPOSITIONING SELF FREQUENTLY. AQUACEL INTACT, DRESSING ON RIGHT HIP INTACT.
--- NOTE | 2019-04-26 09:11 | NUR ---
DR HAMMER IN TO SEE PATIENT DR. HAMMER IN TO SEE PT THIS MORNING, NO NEW ORDERS. PT REFUSED O/T, STATES HE MIGHT ATTEMPT IT LATER. CURRENTLY WANTS TO SLEEP IN BED. PT HAS CALL LIGHT WITHIN REACH. WILL CONT. TO MONITOR.
--- NOTE | 2019-04-26 11:07 | NUR ---
PT AGREES TO WORK WITH O/T AT THIS TIME, REQUIRED ENCOURAGEMENT.
--- NOTE | 2019-04-26 14:43 | NUR ---
B[facility]ARE PROVIDED PT CURRENTLY ON BSC C/O CONSTIPATION. MILK OF MAG AND PRUNE JUICE PROVIDED. WILL CONT TO MONITOR AND TREAT PER ORDERS PRN. PT HAS CALL LIGHT WITHIN REACH AND FALL PREVENTION EDUCATION GIVEN.
--- NOTE | 2019-04-26 19:36 | NUR ---
SHIFT SUMMARY NO ACUTE CHANGES TODAY. PT WORKED WITH THERAPY THIS MORNING. WAS UP IN CHAIR AND WATCHED TV MOST OF DAY. DRESSING TO RIGHT HIP CHANGED AND LEFT HIP AQUACEL C/D/I. PAIN MANAGED WITH PO MEDICATIONS. TOLERATED POLAR LAVELLE THIS MORNING, REFUSED OTHERWISE. VOIDING AND HAD BM. TOLERATING REGULAR DIET. ABLE TO REPOSITION SELF IN BED. REQUIRES FREQUENT REMINDING AND ENCOURAGEMENT TO FOLLOW PRECAUTIONS. HAS CALL LIGHT WITHIN REACH. WILL CONT. TO MONITOR AND GIVE REPORT TO ONCOMING RN.
--- NOTE | 2019-04-27 06:07 | NUR ---
SUMMARY NO ACUTE CHANGES NOTED. DRSG'S REMAIN C/D/I. PT CONTINUES TO REFUSE HIP PRECAUTIONS, SCD'S & POLAR PACK. PT EDUCATION PROVIDED. PAIN MANAGED PER EMAR. RESP UNLABORED. CALL LIGHT IN REACH
--- NOTE | 2019-04-27 17:37 | NUR ---
SHIFT SUMMARY PT UP IN CHAIR AFTER P.T. TIL AFTER LUNCH. INAPPRROPRIATE BEHAVIOR JUST AFTER LUNCH DUE TO CREAMERS SPILLING ALL OVER HIM. REMINDED HIM THAT CUSSING AND YELLING IN THE WAY HE DID WAS UNACCEPTABLE BEHAVIOUR. ASSISTED HIM WITH SHAVING AND HE HAS BEEN APPROPRIATE EVER SINCE.
--- NOTE | 2019-04-28 04:53 | NUR ---
SHIFT SUMMARY NO CHANGES NOTED FROM ASSESSMENT. PT HAS SLEPT WITH NO PROBLEMS. PAIN MANAGED WITH MINAMAL PAIN MEDICATION. DRSG'S REMAIN C/D/I. CIRC WNL. VOIDING WNL. TOLERATING PO INTAKE. BED ALARM REMAINS ON FOR SAFETY. CALL LIGHT IN REACH. [facility]
--- NOTE | 2019-04-28 07:25 | NUR ---
PO NORCO GIVEN WITH YOGURT PT STATED PAIN 09/02 STATED HE SLEPT WELL LAST NIGHT
--- NOTE | 2019-04-28 08:27 | NUR ---
PT EATING BREAKFAST STATED HE DID HAVE A BM YESTERDAY BUT IT WAS HARD HAS A HX OF CONSTIPATION USES COCONUT OIL FOR LAXATIVE
--- NOTE | 2019-04-28 10:06 | NUR ---
OT BY TO SEE PT STILL EATING HIS MEAL WANTING TO WAIT UNTLL LATER
--- NOTE | 2019-04-28 12:27 | NUR ---
pt eating lunch offered pain meds pt declined at this time
--- NOTE | 2019-04-28 16:04 | NUR ---
dr massey by to see pt
--- NOTE | 2019-04-29 06:32 | NUR ---
SHIFT SUMMARY LYING IN SEMI FOWLERS WITH EYES OPEN WHILE WATCHING TV AND SIPPING ON ORANGE JUICE. HAS RESTED WELL THIS SHIFT. STATES THAT HE IS LOOKING FORWARD TO GOING HOME TODAY IF THE DOCTOR WILL ALLOW. DENIES PAIN, DISCOMFORT, OR FURTHER NEEDS AT THIS TIME. SAFETY MEASURES IN PLACE. WILL GIVE HAND OFF TO ONCOMING SHIFT USING SBAR.
--- NOTE | 2019-04-29 06:35 | NUR ---
SHIFT SUMMARY LYING IN SEMI FOWLERS WITH EYES CLOSED. HAS RESTED WELL THIS SHIFT. DENIES PAIN, DISCOMFORT, OR FURTHER NEEDS AT THIS TIME. SAFETY MEASURES IN PLACE. WILL GIVE HAND OFF TO ONCOMING SHIFT USING SBAR.
--- NOTE | 2019-04-29 09:26 | NUR ---
PT AMBULATED TO RESTROOM HEARD PT'S BED ALARM, RESPONDED TO FIND PT HAD AMBULATED INTO RESTROOM W/O ASSISTANCE OR FWW. ADVISED PT THAT LLE IS TO BE NONWB. WHEN PT DONE USING RESTROOM, ASSISTED BACK TO BED USING FWW. PT MAINTAINED NONWB STATUS AT THAT TIME. NOW RESTING IN BED W/BED ALARM ON.
--- NOTE | 2019-04-29 13:56 | NUR ---
PT REFUSING TO ALLOW RN TO ASSESS HIP DRESSINGS/WOUND T/O SHIFT. ATTEMPTED AGAIN TO ASSESS, PT STATED WOULD ALLOW AFTER NAPS.
--- NOTE | 2019-04-29 15:19 | NUR ---
CHANGED DRESSING TO R HIP PER ORDERS.
--- NOTE | 2019-04-29 17:00 | NUR ---
SUMMARY NO ACUTE CHANGES T/O SHIFT. PT SET OFF BED ALARM THIS AM;FOUND HE HAD AMBULATED TO RESTROOM. REEDUCATED ON IMPORTANCE OF NONWB STATUS FOR LLE. USED FWW AND HOPPED BACK TO BED W/O PLACING WEIGHT ON LLE. SAT UP IN CHAIR FOR PORTION OF SHIFT. NOW RESTING IN BED. REPOSITIONS SELF FREQUENTLY IN BED. REFUSED LOVENOX SHOT. ALLOWED DRESSING TO R HIP TO BE CHANGED THIS AFTERNOON. DENIES ANY NEEDS AT THIS TIME. CALL LIGHT IN REACH.
--- NOTE | 2019-04-30 05:44 | NUR ---
SHIFT SUMMARY HAS RESTED OFF AND ON THIS SHIFT. HAS BEEN PLEASANT AND COOPERATIVE WITH NURSING THIS SHIFT. REPOSTIONES SELF IN BED. DENIES PAIN, DISCOMFORT, OR OTHER NEEDS AT THIS TIME. SAFETY MEASURES IN PLACE. WILL GIVE HAND OFF TO ONCOMING SHIFT USING SBAR.
--- NOTE | 2019-04-30 12:07 | NUR ---
WORKED WITH OT, PT NOT COMPLIANT WITH WEIGHT BEARING PRECAUTIONS, PT GOT UP WITHOUT HIS WALKER AND WALKED TO THE CHAIR REFUSING ANY ASSIST, DR. FARLEY AWARE PT IS NON COMPLIANT WITH WEIGHT BEARING PRECAUTIONS.
--- NOTE | 2019-04-30 17:39 | NUR ---
SUMMARY PT RESTING IN BED, OOB TO CHAIR X2 TODAY, NON COMPLIANT WITH WEIGHT BEARING PRECAUTIONS, DENIES ANY NEED FOR PAIN MEDS T/O SHIFT, DSG C/D/I, NO ACUTE CHANGES THIS SHIFT.
--- NOTE | 2019-04-30 18:30 | NUR ---
L HIP WET TO DRY DRESSING CHANGED.
--- NOTE | 2019-04-30 20:46 | NUR ---
PT REFUSAL PT REFUSING ANY ASSISTANCE AT THIS TIME OR MEDICATIONS, REQUESTING TO BE "LEFT ALONE." PT SITTING UP IN BED WATCHING TV, NADN. CALL LIGHT WITHIN REACH. WILL CONTINUE TO ASSESS + ENCOURAGE MEDICATIONS + ASSISTANCE WHEN NEEDED.
--- NOTE | 2019-05-01 07:42 | NUR ---
SHIFT SUMMARY PT RESTED WELL THIS AM. AAOX4/ANXIOUS AT TIMES. PT DENIES DISCOMFORT/NAUSEA T/O SHIFT. DRESSINGS TO RIGHT + LEFT HIP D/C/I. PT REFUSING MOST CARE T/O NIGHT, ACCEPTED MIDNIGHT PO ABX. CONTINUE TO ENCOURAGE COOPERATION WITH CARE + MEDICATIONS. NO ACUTE CHANGES THIS SHIFT. PT RESTING AT THIS TIME, NADN, WITH CALL LIGHT IN REACH.
--- NOTE | 2019-05-01 07:52 | NUR ---
PT APPEARS TO BE RESTING COMFORTABLY. DENIES ANY NEEDS AT THIS TIME. REQUESTS THAT ASSESSMENT BE DONE AFTER HE FINISHES BREAKFAST. RE-EDUCATED ON NWB STATUS ON LLE AND CALLING FOR ASSISTANCE IF NEEDED, PT VERBALIZED UNDERSTANDING.
--- NOTE | 2019-05-01 16:19 | NUR ---
SHIFT SUMMARY NO ACUTE CHANGES SINCE ASSUMING CARE. PT DENIES PAIN. INCISION REMAINS CDI. MAYE REG DIET. UP WITH SBA USING WALKER WHEN OOB. REPOSITIONS SELF IN BED. USING URINAL TO VOID. CALL LIGHT WITHIN REACH.
--- NOTE | 2019-05-02 04:56 | NUR ---
SHIFT SUMMARY: JENS RESTED INTERMITTENTLY THROUGHOUT THE NIGHT. HIS DRESSINGS ARE C/D&I. HE IS TOLERATING PO INTAKE WELL. HE COMPLAINED OF 4/10 PAIN FOR WHICH HE REPORTED ORAL MEDICATION WAS EFFECTIVE. HE IS USING THE URINAL WITHOUT DIFFICULTIES. HE REPORTS THAT HIS USE OF MARIJUANA CONTROLS HIS SEIZURE ACTIVITY. HE IS ABLE TO MAKE HIS NEEDS KNOWN. HE IS LYING IN BED WITH HIS CALL LIGHT IN REACH. HE USES HIS CALL LIGHT APPROPRIATELY.
--- NOTE | 2019-05-02 15:22 | NUR ---
DRESSING CHANGE DRESSING CHANGE TO BILAT HIPS. L HIP AQUACEL DRESSING X'S 2 CLEANED AND CHANGED, DO DRAINAGE NOTED. R HIP DRESSING CHANGED. R HIP WOUND CLEANED, WET TO DRY DRESSING APPLIED. SMALL AMOUNT SEROUS DRAINAGE NOTED ON PREVIOUS DRESSING. PT TOLERATED WELL.
--- NOTE | 2019-05-02 17:23 | NUR ---
SHIFT SUMMARY PT HAS DONE WELL THIS SHIFT. HAS BEEN COMPLIANT WITH NWB STATUS IN LLE. HAS DENIED PAIN T/O SHIFT. DOES C/O FEELING LIKE HE HAS "FOOD POISONING" BUT DENIES NEED FOR ZOFRAN AND REQUESTS DINNER TRAY. DRESSING CHANGES DONE TODAY, SEE PREVIOUS NOTE. PLAN IS TO DC FRIDAY FOLLOWING STAPLE REMOVAL.
--- NOTE | 2019-05-03 04:59 | NUR ---
SHIFT SUMMARY: JENS IS POD 11 FOR LEFT HIP FX. HIS DRESSINGS ARE C/D&I TO THE LEFT HIP AND THE CHRONIC ULCER ON HIS RIGHT HIP. HE IS TOLERATING PO INTAKE WELL. HE IS ABLE TO MAKE HIS NEEDS KNOWN. VSS. NO ACUTE CHANGES THIS SHIFT. HE IS USING THE URINAL WITHOUT DIFFICULTY. HE RESTED COMFORTABLY FOR MOST OF THE SHIFT. HE USES HIS CALL LIGHT APPROPRIATELY. HE IS LYING IN BED WITH HIS CALL LIGHT IN REACH.
--- NOTE | 2019-05-03 18:21 | NUR ---
SUMMARY DENIED ANY PAIN T/O SHIFT, OT REPORTS PT WAS MORE COOPERATIVE TODAY, BUT PT WAS SEEN TRANSFERRING SELF FROM BED TO CHAIR WITHOUT CALLING, STATES "IT'S OK, I CAN DO IT" PT REMINDED OF NON WEIGHT BEARING STATUS, REFUSED LOVENOX TODAY, NO ACUTE CHANGES THIS SHIFT.
--- NOTE | 2019-05-04 05:25 | NUR ---
PT HAD AN UNEVENTFUL NIGHT. VSS, DRESSINGS CDI. PT DENIED PAIN/N/V, IS VOIDING URINE W/O DIFFICULTY. PT REPOSITIONING SELF IN BED, NWB OF LLE REINFORCED. PT USING CALL LIGHT FOR ASSISTANCE, WILL CONT TO MONITOR UNITIL REP GIVEN TO ONCOMING RN.
--- NOTE | 2019-05-04 14:02 | NUR ---
DR ASHER AT THE BEDSIDE, VISUALIZED WOUNDS ON BILAT HIPS. PHANI RELOVED ON L HIP INCISION SITES AND APPLIED 3M BANDAID DRESSING AFTER CLEANSING WITH PEROXIDE. INC WELL APPROXIMATED, PINK SCARS, NO DRAINAGE. R HIP WOUND APPEARS LONG STANDING, OPEN AREA APPROX 3.5CM X .75CM, PINK WOUND BASE SURROUNDED WITH SCAR TISSUE ABOUT 0.5CM DEPTH. SCANT SEROUS SEAPAGE. APPLIED MEPILEX, DR ASHER AGREED.
--- NOTE | 2019-05-04 17:55 | NUR ---
SUMMARY- PT ALERT AND ORIENTED, FOLLOWS COMMANDS, IS COOPERATIVE AND VERY TALKATIVE- GRANDIOSE IDEAS AND TANGENTIAL THINKING. LIKES TO SPEAK ABOUT TRIVIAL FACTS AND JOKES, WATCHED SPONGE SUE SQUARE PANTS MOST OF THE DAY AND NAPPINT. GETS UP TO CHAIR INTERMITTANT THROUGH THE DAY USING TTWB, HOLDING ONTO FURNATURE. ENCOURAGED THE USE OF THE WALKER. PHANI TAKEN OUT TODAY WHILD DR GARCIA AT BEDSIDE, APPLIED 3M DRESSING. CHANGED DRESSING TO R HIP WITH MEPILEX. PT TOLERATING FOOD AND FLUIDS, VOIDING IN URINAL. HAD LG SOFT BM TODAY. DENIED PAIN EXCEPT IN THE AM STATED L HIP ACHE, MEDICATED WITH NAP. SODIUM.
--- NOTE | 2019-05-05 06:40 | NUR ---
PT HAD NO CHANGES T/O NIGHT; VSS. DRESINGS CDI, PT DENIED PAIN. PT MAYE PO, NO C/O N/V, IS VOIDING W/O DIFFICULTY. TTWBS REINFORCED W/PT. CONT TO AWAIT D/C PLANNING.
--- NOTE | 2019-05-05 07:51 | NUR ---
PT APPEARS TO BE SLEEPING COMFORTABLY AT THIS TIME. AWAKENS EASILY, REQUESTS THAT ASSESSMENTS AND MEDICATIONS BE DONE ONCE HE WAKES.
--- NOTE | 2019-05-05 18:27 | NUR ---
SHIFT SUMMARY PT HAS DONE WELL THIS SHIFT. DRESSINGS CHANGED BILAT HIPS, PURULENT DRAINAGE PRESENT ON R HIP DRESSING FROM HEALING ABCESS. PACKING PLACED IN WOUND AND CLEAN DRESSING APPLIED. PT HAS BEEN COMPLIANT WITH CARE THIS SHIFT. PLAN IS TO DC TOMORROW AM
--- NOTE | 2019-05-06 05:36 | NUR ---
SHIFT SUMMARY: JENS IS A&OX4. HE DENIED HIS SCHEDULED MEDICATIONS BUT DID TAKE HIS MIDNIGHT ANTIBIOTIC ALONG WITH A NORCO FOR 4/10 PAIN. HE WAS ABLE TO REST COMFORTABLY FOR MOST OF THE SHIFT. DRESSINGS X 2 C/D&I. HE IS ABLE TO MAKE HIS NEEDS KNOWN. HE IS USING THE URINAL WITHOUT DIFFICULTY. HIS CALL LIGHT IS IN REACH. HE IS TOLERATING PO INTAKE WELL.
[2019-05-06] MEDS ORDERED: CEPH500 PO (10:39)
[2019-05-06] MEDS ORDERED: FAMO20 PO (10:39)
[2019-05-06] MEDS ORDERED: LEVE500 PO (10:39)
[2019-05-06] MEDS ORDERED: NAPR500 PO (10:40)
--- NOTE | 2019-05-06 15:20 | NUR ---
PATIENT D/C'D TO [facility] AT THIS TIME. PATIENT STATES UNDERSTANDING OF MEDS TO P/U AT [facility], F/U APPTS ARRANGED BY [facility], WOUND CARE, ETC. NO ACUTE CHANGES OR C/O AT THIS TIME.
== END 2019-05-06 15:20 | disposition home or self-care (01) | DRG 482 ==
LOC: ER 06:31 → SURS 10:16
PROVIDERS: Nurse Practitioner Acute Care; Orthopaedic Surgery; ADMIT Internal Medicine
PROC: 0HDHXZZ Extraction of Right Upper Leg Skin, External Approach (ICD-10-PCS; 2019-04-21)
PROC: 0QH734Z Insertion of Internal Fixation Device into Left Upper Femur, Percutaneous Approach (ICD-10-PCS; principal; 2019-04-21 14:00)
PROC: 3E0234Z Introduction of Serum, Toxoid and Vaccine into Muscle, Percutaneous Approach (ICD-10-PCS; 2019-04-22)
DX: S72.142A Displaced intertrochanteric fracture of left femur, initial encounter for closed fracture (principal); W19.XXXA Unspecified fall, initial encounter; Z91.81 History of falling; Z59.0 Homelessness; F19.90 Other psychoactive substance use, unspecified, uncomplicated; Z86.73 Personal history of transient ischemic attack (TIA), and cerebral infarction without residual deficits; F10.20 Alcohol dependence, uncomplicated; F12.20 Cannabis dependence, uncomplicated; G40.909 Epilepsy, unspecified, not intractable, without status epilepticus; S71.001A Unspecified open wound, right hip, initial encounter; Z23 Encounter for immunization
CPT/HCPCS: 36415; 70450; 73070; 73502; 73560-LT; 80048; 80202; 82565; 83735; 85025; 85610; 85651; 86140; 87070; 87075; 87077; 87147; 87186; 87205; 90732; 94762; 96374; 96375; 97110; 97116; 97162; 97164; 97166; 97530; 97535; 99284-25; A9270-GY; C1713; C1769; G0009; J0696; J1100; J1170; J1650; J1885; J2250; J2370; J2405; J2704; J2710; J3010; J3370; J7050; J7120; Q0163

== ENCOUNTER 2019-05-07 10:12 | Emergency (ER) | payer MEDICARE, OTHER ==
[~2019-05-07] VITALS: Ht 172.7 cm; Wt 69.4 kg
[~2019-05-07 10:12] MED LIST changes: +CEPH500 PO; +DIVA500EC; +FAMO20 PO; +LEVE500 PO; +NAPR500 PO; +TUMS500 MG PO
== END 2019-05-07 14:21 | disposition home or self-care (01) ==
LOC: ER 10:12
DX: T69.9XXA Effect of reduced temperature, unspecified, initial encounter (principal); Z59.0 Homelessness; G40.909 Epilepsy, unspecified, not intractable, without status epilepticus; J44.9 Chronic obstructive pulmonary disease, unspecified; M19.90 Unspecified osteoarthritis, unspecified site; Z98.890 Other specified postprocedural states
CPT/HCPCS: 99283

== ENCOUNTER 2019-09-01 00:14 | Emergency (ER) | payer MEDICARE, OTHER ==
[~2019-09-01] VITALS: Ht 172.7 cm; Wt 77.1 kg
== END 2019-09-01 00:41 | disposition home or self-care (01) ==
LOC: ER 00:14
DX: Z00.00 Encounter for general adult medical examination without abnormal findings (principal); Z77.118 Contact with and (suspected) exposure to other environmental pollution
CPT/HCPCS: 99283

== ENCOUNTER 2019-09-01 16:36 | Emergency (ER) | payer MEDICARE, OTHER ==
[~2019-09-01] VITALS: Ht 172.7 cm; Wt 54.4 kg
[2019-09-01 17:23] LABS: BASOPHILS ABSOLUTE AUTO 0.04 K/mm3 (0.00-0.23); BASOPHILS PERCENT AUTO 1 % (0-2); EOSINOPHILS ABSOLUTE AUTO 0.12 K/mm3 (0.00-0.68); EOSINOPHILS PERCENT AUTO 2 % (0-6); Hematocrit 32.5 % (37.0-53.0); Hemoglobin 10.4 g/dL (13.5-17.5); IMMATURE GRAN ABSOLUTE AUTO 0.01 K/mm3 (0.00-0.10); IMMATURE GRAN PERCENT AUTO 0 % (0-1); LYMPHOCYTES ABSOLUTE AUTO 1.95 K/mm3 (0.84-5.20); LYMPHOCYTES PERCENT AUTO 30 % (21-46); MONOCYTES ABSOLUTE AUTO 0.66 K/mm3 (0.16-1.47); MONOCYTES PERCENT AUTO 10 % (4-13); Mean Corpuscular HGB 19.9 pg (26.0-34.0); Mean Corpuscular Volume 62 fL (80-100); Mean Platelet Volume 9.3 fL (9.1-12.4); NEUTROPHILS ABSOLUTE AUTO 3.84 K/mm3 (1.96-9.15); NEUTROPHILS PERCENT AUTO 58 % (41-73); Platelet Count 365 K/mm3 (150-400); RDW Coefficient Variation 18.3 % (11.7-14.2); RDW Standard Deviation 37.8 fL (35.1-46.3); Red Blood Cell Count 5.22 M/mm3 (4.30-5.90); White Blood Cell Count 6.62 K/mm3 (4.00-11.30)
[2019-09-01 17:55] LABS: Alanine Aminotransfer (ALT/SGP 30 U/L (12-78); Albumin, Blood 3.5 g/dL (3.4-5.0); Albumin/Globulin Ratio 0.9 (0.8-1.8); Alk Phos 92 U/L (50-136); Anion Gap 4 mmol/L (6-16); Aspartate Aminotrans (AST/SGOT 43 U/L (12-37); Bilirubin, Total 0.5 mg/dL (0.1-1.0); Blood Urea Nitrogen 27 mg/dL (8-24); Bun/Creatinine Ratio 29.8 (12.0-20.0); CO2, Blood 25 mmol/L (21-32); CPK Creatine Kinase 307 U/L (39-308); Chloride, Blood 110 mmol/L (98-108); Creatinine, Blood 0.91 mg/dL (0.60-1.20); Ethanol (Alcohol), Blood, Med <3 mg/dL; Globulin, Blood 3.8 g/dL (2.2-4.0); Glomerular Filtration Rate >60 (60-); Glucose, Blood 86 mg/dL (70-99); Potassium, Blood 4.3 mmol/L (3.5-5.5); Sodium, Blood 139 mmol/L (136-145); Total Protein, Blood 7.3 g/dL (6.4-8.2)
[2019-09-01 17:58] LABS: Creatine Kinase MB 5.8 ng/mL (0.0-3.6); Creatine Kinase MB Index 1.9 (0.0-4.0)
== END 2019-09-01 19:07 | disposition home or self-care (01) ==
LOC: ER 16:36
PROVIDERS: Emergency Medicine
DX: E86.0 Dehydration (principal); J44.9 Chronic obstructive pulmonary disease, unspecified; M19.90 Unspecified osteoarthritis, unspecified site; X30.XXXA Exposure to excessive natural heat, initial encounter
CPT/HCPCS: 36415; 80053; 82550; 82553; 85025; 93005; 93010; 96360; 96361; 99284-25; G0480; J7030